=== PATIENT | male | born 1985 | race Caucasian/White ===

== ENCOUNTER 2019-04-16 15:28 | Emergency (ER) | payer OTHER ==
[~2019-04-16] VITALS: Ht 182.9 cm; Wt 97.5 kg
[~2019-04-16 15:28] MED LIST: NAPROSYN500 MG PO; NORFLEX100 MG PO
[2019-04-16] MEDS ORDERED: IBUPROFEN 800800 M1 PO (16:33)
[2019-04-16 16:42] VITALS: BP 144/105
== END 2019-04-16 16:42 | disposition home or self-care (01) ==
LOC: ER 15:28
DX: S90.31XA Contusion of right foot, initial encounter (principal); F17.210 Nicotine dependence, cigarettes, uncomplicated; W20.8XXA Other cause of strike by thrown, projected or falling object, initial encounter; Y93.89 Activity, other specified; Y92.89 Other specified places as the place of occurrence of the external cause; Y99.8 Other external cause status

== ENCOUNTER 2021-03-15 11:13 | Emergency (ER) | payer OTHER ==
[~2021-03-15] VITALS: Ht 182.9 cm; Wt 90.7 kg
[~2021-03-15 11:13] MED LIST changes: +IBUPROFEN 800800 M1 PO
[2021-03-15 14:57] VITALS: BP 147/74
== END 2021-03-15 14:58 | disposition home or self-care (01) ==
LOC: ER 11:13
PROVIDERS: Student in an Organized Health Care Education/Training Program
DX: U07.1 COVID-19 (principal); J06.9 Acute upper respiratory infection, unspecified; F17.210 Nicotine dependence, cigarettes, uncomplicated; F12.90 Cannabis use, unspecified, uncomplicated